=== PATIENT | female | born 1965 | race American Indian/Alaskan Native ===

== ENCOUNTER 2021-09-11 13:16 | Emergency (ER) | payer MEDICAID ==
[2021-09-11 14:40] VITALS: BP 118/61
== END 2021-09-11 20:20 | disposition left against medical advice (07) ==
LOC: ED 13:16
DX: S09.91XA Unspecified injury of ear, initial encounter (principal); Z53.21 Procedure and treatment not carried out due to patient leaving prior to being seen by health care provider; X58.XXXA Exposure to other specified factors, initial encounter; Y93.89 Activity, other specified; Y92.89 Other specified places as the place of occurrence of the external cause; Y99.8 Other external cause status

== ENCOUNTER 2021-11-02 07:45 | Day surgery (SDC) | payer MEDICAID ==
[2021-11-02] MEDS ORDERED: SODIUM CHLORIDE 0.9% 1000 ML 1,000 ML ONE (08:49)
[2021-11-02] MEDS ORDERED: SODIUM CHLORIDE 0.9% 1000 ML 1,000 ML IV SCH (09:00)
--- NOTE | 2021-11-02 09:14 | Anesthesia Consultation ---
Anesthesia Consult and Med Hx Date of service: 11/02/21 - Airway Anesthetic Teeth Evaluation: Poor (missing teeth), Chipped ROM Head & Neck: Adequate Mental/Hyoid Distance: Adequate Mallampati Class: Class II Intubation Access Assessment: Probably Good - Pulmonary Exam CTA: Yes - Cardiac Exam Cardiac Exam: RRR - Pre-Operative Health Status ASA Pre-Surgery Classification: ASA3 Proposed Anesthetic Plan: MAC - Pulmonary Hx Smoking: Yes (~5 cigarettes/week) Hx Asthma: Yes (last used inhaler 1 week ago) Hx Respiratory Symptoms: No Hx Sleep Apnea: Yes (no CPAP) - Cardiovascular System Hx Hypertension: No Hx Coronary Artery Disease: No Hx Peripheral Vascular Disease: No (HX of LLE aneurysm - stent placed) - Central Nervous System Hx Seizures: No CVA: No - Endocrine Hx Renal Disease: No (LUPUS) Hx Liver Disease: No Hx Insulin Dependent Diabetes: Yes Hx Hypothyroidism: Yes - Hematic Hx Anemia: No Hx Sickle Cell Disease: No - Other Systems Hx Alcohol Use: No Hx Substance Use: Yes (cocaine stopped in August - currently on methadone) Hx Cancer: No Hx Obesity: Yes - Additional Comments Anesthesia Medical History Comments: no hx of anesthetic complications
--- NOTE | 2021-11-02 09:14 | Anesthesia Day of Surgery ---
Anesthesia Day of Surgery - Day of Surgery Patient Examined: Yes Patient H&P Reviewed: Yes Patient is NPO: Yes
[2021-11-02] MEDS ORDERED: LIDOCAINE MPF (2%) 20 MG/1 ML VIAL 5 ML ONE (09:18)
[2021-11-02] MEDS ORDERED: propofoL 200 MG/20 ML VIAL IV ONE ×3 (09:18→09:59)
[2021-11-02] MEDS ORDERED: WATER FOR IRRIG STERILE 1,000 ML BOTTLE ONE ×2 (09:46→09:52)
--- NOTE | 2021-11-02 10:17 | History and Physical Report ---
History of Present Illness Date of examination: 11/02/21 Date of admission: 11/02/2021 Chief complaint: Constipation, colorectal cancer screening History of present illness: Patient is a 56-year-old female who presented history of constipation for colonoscopy. She has a history of bloating will gas. Patient was evaluated not in outpatient and scheduled for outpatient colonoscopy. Lately she has had progressive constipation required medications. Denies any other interval complaints. Past History Past Medical History: hypertension Past Surgical History: Other (Repair of lower extremity aneurysm) Social history: other (Past history of poly substance abuse). denies: smoking, alcohol abuse Family history: hypertension Medications and Allergies Allergies Allergy/AdvReac Type Severity Reaction Status Date / Time No Known Allergies Allergy Verified 09/11/21 14:40 Review of Systems Constitutional: no fever, no chills, no anorexia, no fatigue, no weakness Ears, nose, mouth and throat: no ear pain, no ear discharge, no tinnitis, no nasal congestion, no sinus pressure, no sinus pain, no dental pain, no mouth pain, no dysphagia, no hoarseness, no sore throat, no swelling in mouth, no swelling in throat, no headache, no vertigo Breasts: no deferred Respiratory: no cough, no wheezing, no respiratory infections Gastrointestinal: constipation, change in bowel habits, excessive gas, no abdominal pain, no nausea, no vomiting, no diarrhea, no BRBPR, no melena, no hematochezia, no loss of appetite Genitourinary Female: no pelvic pain, no flank pain, no urgency, no stress incontinence, no difficulty voiding Rectal: no pain, no bleeding, no itching Musculoskeletal: no neck pain, no low back pain, no frequent falls Integumentary: deferred Neurological: no head injury, no weakness, no headaches Psychiatric: no anxiety Endocrine: no cold intolerance, no heat intolerance, no polyphagia, no excessive thirst, no polydipsia Hematologic/Lymphatic: no easy bruising, no lymphadenopathy Allergic/Immunologic: no urticaria, no allergic rhinitis, no wheezing Exam - Constitutional General appearance: Present: well-nourished. Absent: no acute distress - EENT Eyes: Present: PERRL, EOM intact. Absent: scleral icterus ENT: hearing intact, clear oral mucosa - Neck Neck: Present: supple, normal ROM - Respiratory Respiratory effort: normal Respiratory: bilateral: CTA - Cardiovascular Rhythm: regular Heart Sounds: Present: S1 & S2. Absent: gallop - Extremities Extremities: No edema - Rectal Rectal Exam: normal rectal tone - Integumentary Integumentary: Present: clear - Musculoskeletal Musculoskeletal: strength equal bilaterally - Psychiatric Psychiatric: appropriate mood/affect, cooperative - Neurologic Neurologic: CNII-XII intact Assessment and Plan Constipation colorectal cancer screening Plan: will proceed with full colonoscopy.
--- NOTE | 2021-11-02 10:35 | Operative Report ---
Operative Report Operative Report: DATE:11/02/2021 Colonoscopy with ablation, multiple hot biopsy polypectomys. ATTENDING PHYSICIAN: Chong Jones M.D. AIRCRAFT MANAGER: Chong Jones M.D. INDICATIONS: Patient is a 56 y.o. female who presents with a history of constipation and bloating and gas for outpatient colonoscopy . A colonoscopy is done to evaluate patient so that treatment may be directed based on the findings. CONSENT: Informed consent was obtained after the patient was advised regarding the nature of this procedure, its indications, potential benefits as well as possible complications including but not limited to bleeding, perforation, adverse reaction to medications, infection as well as cardiopulmonary complications. An informed written and verbal consent was then obtained after due opportunity was provided for questions and answers. MONITORING: Patient monitored continuously with pulse oximetry, electrocardiographic recordings as well as automatic blood pressure recordings. Patient remained stable throughout the procedure with no untoward events. PREOPERATIVE ASSESSMENT: Patient was assessed immediately prior to this procedure for capacity to tolerate moderate sedation/monitored anesthesia care. [employer] [employer] classification is 3. Mallampati class is 2. Hyomental distance is 3. INSTRUMENT: Olympus video colonoscope [id number], ([id number]). MEDICATIONS: Propofol given intravenously in divided doses. For details, please refer to anesthesia records. DESCRIPTION OF PROCEDURE: Prior to this examination, patient was carefully reviewed. Her history and physical was reviewed, and updated. Patient was then placed in the left lateral decubitus position, after achieving sedation, a digital rectal examination was performed following which the colonoscope was introduced into the anal verge and advanced under direct visualization to the cecum which was identified by the ileocecal valve, the appendiceal orifice, the cecal strap as well as by direct transillumination in the right lower quadrant. Color texture mucosa and anatomy of the colon were carefully examined with the colonoscope. The colonoscope was then gently withdrawn with careful inspection of all mucosa surfaces. The patient tolerated the procedure well with no complications. After completion of the examination, patient was transferred to the recovery room. The prep written regimen was GoLYTELY and the preparation was poor (The [place] prep scale score was 3 with a score of 1 in the three different regions). The following findings were noted. FINDINGS: Patient had substantial retained thick liquid stool throughout every section of the colon which was irrigated with more than 2 L of fluid. The cecum otherwise was normal. The ascending colon was normal. Transverse colon was normal. The descending colon was normal. In the sigmoid colon, patient had multiple diminutive polyps. One of the polyps appeared to be serrated with a mucus plaque around it and measured approximately 7 mm. All polyps removed by hot biopsy polypectomy and retrieved. In the rectum, patient had a diminutive 4 to 5 mm polyp. This was completely ablated by electrocoagulation with complete tissue destruction. On the retroflexed view at the anal verge patient had internal hemorrhoids. IMPRESSION:; Multiple sigmoid polyps status post hot biopsy polypectomy Rectal polyps status post ablation, by electrocoagulation with complete polyp tissue destruction. Internal Hemorrhoids. Poor colonoscopy preparation PLAN: Follow-up pathology report High fiber diet. Consider repeat colonoscopy in 1 year, due to poor colonoscopy preparation
[2021-11-02 11:12] VITALS: BP 141/65
--- NOTE | 2021-11-02 11:23 | Post Anesthesia Evaluation ---
- Post Anesthesia Evaluation Patient Participated: Yes Airway Patent: Yes Stable Respiratory Function: Yes Nausea/Vomiting: No Temp > 96.8F: Yes Pain Manageable: Yes Adequeate Hydration: Yes Anesthesia Complications: No Block Receding Appropriately: Not Applicable Patient on Ventilator: No
== END 2021-11-02 11:15 | disposition home or self-care (01) ==
LOC: GIO 07:45
PROVIDERS: ATTEND Internal Medicine Gastroenterology
DX: K59.00 Constipation, unspecified (principal); R14.0 Abdominal distension (gaseous); K64.8 Other hemorrhoids; K63.5 Polyp of colon; K62.1 Rectal polyp; J45.909 Unspecified asthma, uncomplicated; G47.30 Sleep apnea, unspecified; E03.9 Hypothyroidism, unspecified; E11.9 Type 2 diabetes mellitus without complications; F17.210 Nicotine dependence, cigarettes, uncomplicated; Z79.899 Other long term (current) drug therapy; Z79.4 Long term (current) use of insulin; Z98.890 Other specified postprocedural states
CPT/HCPCS: 45384; 45388; 82962; 88305; J2704; J7030